=== PATIENT | female | born 1970 | race Caucasian/White ===

== ENCOUNTER 2018-11-12 11:41 | Inpatient (IN) | payer OTHER ==
[~2018-11-12] VITALS: Ht 160 cm; Wt 64.1 kg
[2018-11-12 12:25] VITALS: BP 128/89
[2018-11-12 13:06] LABS: BASO # 0.1 10*3/uL (0.0-0.1); BASO % 0.5 % (0.0-1.0); EOS # 0.1 10*3/uL (0.0-0.4); EOS % 0.3 % (1.0-4.0); HEMATOCRIT 39.8 % (37.0-47.0); HEMOGLOBIN 13.6 g/dl (12.0-16.0); LYMPH # 2.4 10*3/uL (1.3-4.4); LYMPH % 13.6 % (27.0-41.0); MEAN CORPUSCULAR HGB 34.5 pg (27.0-31.0); MEAN CORPUSCULAR HGB CONC 34.2 g/dl (33.0-37.0); MONO # 0.6 10*3/uL (0.1-1.0); MONO % 3.7 % (3.0-9.0); NEUT # 14.3 10*3/uL (2.3-7.9); NEUT % 81.5 % (47.0-73.0); PLATELET COUNT AUTOMATED 255 10*3/uL (130-400); RED BLOOD COUNT 3.94 10*6/uL (4.10-5.10); RED CELL DISTRI WIDTH 12.5 % (0-14.5); WHITE BLOOD COUNT 17.5 10*3/uL (4.8-10.8)
[2018-11-12 13:15] LABS: INTERNATIONAL NORM RATIO 0.9 (2.0-3.5)
[2018-11-12 13:24] LABS: ALBUMIN 3.4 gm/dl (3.1-4.5); ALKALINE PHOSPHATASE 71 U/L (45-117); BUN 10 mg/dl (7-24); CHLORIDE 104 mmol/L (98-107); CREATININE 0.59 mg/dL (0.55-1.02); POTASSIUM 3.8 mmol/L (3.5-5.1); SGOT/AST 54 IU/L (3-35); SGPT/ALT 61 U/L (12-78); SODIUM 136 mmol/L (136-145); TOTAL PROTEIN 7.5 gm/dL (6.4-8.2)
[2018-11-12 13:26] LABS: ETHYL ALCOHOL < 3.0 mg/dl (<3)
[2018-11-12 13:27] LABS: BETA-HCG, QUANT < 1.0 mIU/mL (1-3)
[2018-11-12 14:50] LABS: BILIRUBIN NEGATIVE (NEGATIVE); BLOOD NEGATIVE (NEGATIVE); CLARITY CLEAR (CLEAR); COLOR YELLOW (YELLOW); GLUCOSE NEGATIVE (NEGATIVE); KETONE NEGATIVE (NEGATIVE); LEUKO ESTERASE NEGATIVE (NEGATIVE); NITRITE NEGATIVE (NEGATIVE); UROBILINOGEN 0.2 E.U./dl (0.2-1.0)
[2018-11-12 14:57] LABS: RBC 0-2 rbc/hpf (0-2)
[2018-11-12 15:00] LABS: URINE AMPHETAMINES < 1000 (1000ng/ml); URINE BARBITURATES < 200 (200ng/ml); URINE BENZODIAZEPINES > 200 (200ng/ml); URINE CANNABINOIDS (THC) > 50 (50ng/ml); URINE COCAINE < 300 (300ng/ml); URINE METHADONE < 300 (300ng/ml); URINE OPIATES > 300 (300ng/ml)
[2018-11-12 15:06] LABS: URINE PHENCYCLIDINE < 25 (25ng/ml)
[2018-11-12 16:00] VITALS: BP 119/78
[2018-11-12 20:00] VITALS: BP 123/82
[2018-11-13] VITALS: BP 134/90
[2018-11-13 08:00] VITALS: BP 125/80
[2018-11-13 16:00] VITALS: BP 121/63
[2018-11-14] VITALS: BP 121/75
[2018-11-14 08:00] VITALS: BP 141/82
== END 2018-11-14 11:39 | disposition left against medical advice (07) | DRG 894 ==
LOC: 4E 11:41
PROVIDERS: Family Medicine
DX: F11.23 Opioid dependence with withdrawal (principal); E44.0 Moderate protein-calorie malnutrition; F10.239 Alcohol dependence with withdrawal, unspecified; F12.10 Cannabis abuse, uncomplicated; F13.10 Sedative, hypnotic or anxiolytic abuse, uncomplicated; D72.829 Elevated white blood cell count, unspecified; F41.9 Anxiety disorder, unspecified; F31.9 Bipolar disorder, unspecified; R74.0 Nonspecific elevation of levels of transaminase and lactic acid dehydrogenase [LDH]; F90.9 Attention-deficit hyperactivity disorder, unspecified type; Z53.21 Procedure and treatment not carried out due to patient leaving prior to being seen by health care provider; Z72.0 Tobacco use; Z71.6 Tobacco abuse counseling; Z98.891 History of uterine scar from previous surgery; Z68.25 Body mass index [BMI] 25.0-25.9, adult

== ENCOUNTER 2020-07-04 10:58 | Inpatient (IN) | payer OTHER ==
[~2020-07-04] VITALS: Ht 160 cm; Wt 70.8 kg
[2020-07-04 13:00] VITALS: BP 124/87
[2020-07-04 13:59] LABS: BASO # 0.1 10*3/uL (0.0-0.1); BASO % 0.7 % (0.0-1.0); EOS # 0.3 10*3/uL (0.0-0.4); EOS % 2.7 % (1.0-4.0); LYMPH # 3.1 10*3/uL (1.3-4.4); LYMPH % 25.1 % (27.0-41.0); MEAN CELL VOLUME 102.2 fl (81.0-99.0); MEAN CORPUSCULAR HGB 33.9 pg (27.0-31.0); MEAN CORPUSCULAR HGB CONC 33.2 g/dl (33.0-37.0); MONO # 0.9 10*3/uL (0.1-1.0); MONO % 7.3 % (3.0-9.0); NEUT # 7.9 10*3/uL (2.3-7.9); PLATELET COUNT AUTOMATED 247 10*3/uL (130-400); RED BLOOD COUNT 4.01 10*6/uL (4.10-5.10); RED CELL DISTRI WIDTH 12.4 % (0-14.5); WHITE BLOOD COUNT 12.4 10*3/uL (4.8-10.8)
[2020-07-04 14:12] LABS: INTERNATIONAL NORM RATIO 0.9 (2.0-3.5)
[2020-07-04 14:15] LABS: ALBUMIN 3.6 gm/dl (3.1-4.5); ALKALINE PHOSPHATASE 53 U/L (45-117); BUN 9 mg/dl (7-24); CHLORIDE 104 mmol/L (98-107); CREATININE 0.61 mg/dL (0.55-1.02); LIPASE 54 U/L (73-393); POTASSIUM 3.3 mmol/L (3.5-5.1); SGOT/AST 38 IU/L (3-35); SGPT/ALT 65 U/L (12-78); SODIUM 135 mmol/L (136-145); TOTAL PROTEIN 7.6 gm/dL (6.4-8.2)
[2020-07-04 14:18] LABS: BETA-HCG, QUANT < 1.0 mIU/mL (1-3); ETHYL ALCOHOL < 3.0 mg/dl (<3)
[2020-07-04 16:00] VITALS: BP 115/70
[2020-07-04 20:00] VITALS: BP 100/62
[2020-07-05] VITALS: BP 102/53
[2020-07-05 08:00] VITALS: BP 101/49
[2020-07-05 12:00] VITALS: BP 109/66
[2020-07-05 16:00] VITALS: BP 114/59
[2020-07-05 20:00] VITALS: BP 104/49
[2020-07-06] VITALS: BP 100/54
[2020-07-06 08:00] VITALS: BP 123/85
== END 2020-07-06 11:13 | disposition left against medical advice (07) | DRG 770 ==
LOC: 5E 10:58
PROVIDERS: Internal Medicine; ADMIT Family Medicine
DX: F11.23 Opioid dependence with withdrawal (principal); E83.41 Hypermagnesemia; F10.239 Alcohol dependence with withdrawal, unspecified; F12.10 Cannabis abuse, uncomplicated; F13.239 Sedative, hypnotic or anxiolytic dependence with withdrawal, unspecified; F31.9 Bipolar disorder, unspecified; E87.1 Hypo-osmolality and hyponatremia; D72.829 Elevated white blood cell count, unspecified; F17.210 Nicotine dependence, cigarettes, uncomplicated; E87.6 Hypokalemia; F41.9 Anxiety disorder, unspecified; F90.9 Attention-deficit hyperactivity disorder, unspecified type; Z71.6 Tobacco abuse counseling; Z83.79 Family history of other diseases of the digestive system